=== PATIENT | female | born 1955 | race Caucasian/White ===

== ENCOUNTER 2019-01-13 02:29 | Emergency (ER) | payer SELFPAY ==
--- NOTE | 2019-01-13 03:11 | ER ---
Nurse's Notes [facility] Name: Anastasiya Salazar Age: 63 yrs Sex: Female : 1955 Arrival Date: 01/13/2019 Time: 02:31 Bed 16 Private MD: Diagnosis: Urinary tract infection, site not specified Presentation: 01/13 02:38 Presenting complaint: Patient states: "I think I might have a UTI. Ether that or it jd3 might have something to do with my bladder falling. my doctor has talked about maybe needing to do a mesh, but I don't know if that would cause this painful and urinary frequency.". Transition of care: patient was not received from another setting of care. Onset of symptoms was January 13, 2019. Risk Assessment: Do you want to hurt yourself or someone else? Patient reports no desire to harm self or others. Initial Sepsis Screen: Does the patient meet any 2 criteria? No. Patient's initial sepsis screen is negative. Does the patient have a suspected source of infection? No. Patient's initial sepsis screen is negative. Care prior to arrival: None. 02:38 Method Of Arrival: Ambulatory jd3 02:38 Acuity: BRIGITTE 4 jd3 Historical: - Allergies: 02:41 No Known Allergies; jd3 - Home Meds: 02:41 gabapentin oral oral [Active]; jd3 - PMHx: 02:41 None; jd3 - PSHx: 02:41 tubal preg; jd3 - Immunization history:: Adult Immunizations up to date. - Social history:: Smoking status: Patient/guardian denies using tobacco, the patient reports quitting approximately 10 years ago. - Ebola Screening: : Patient negative for fever greater than or equal to 101.5 degrees Fahrenheit, and additional compatible Ebola Virus Disease symptoms. Screenin:01 Abuse screen: Denies threats or abuse. Denies injuries from another. Nutritional rr5 screening: No deficits noted. Tuberculosis screening: No symptoms or risk factors identified. Fall Risk None identified. Total Crawford Fall Scale indicates No Risk (0-24 pts). Assessment: 02:40 General: Appears in no apparent distress. comfortable, Behavior is calm, cooperative, rr5 appropriate for age. Pain: Complains of pain in urethral area Pain does not radiate. Pain currently is 8 out of 10 on a pain scale. Quality of pain is described as aching, Pain began gradually, Is intermittent. Neuro: Level of Consciousness is awake, alert, obeys commands, Oriented to person, place, time, situation, Appropriate for age. 02:40 Cardiovascular: Capillary refill < 3 seconds Patient's skin is warm and dry. rr5 Respiratory: Airway is patent Respiratory effort is even, unlabored, Respiratory pattern is regular, symmetrical. GI: No signs and/or symptoms were reported involving the gastrointestinal system. : Urine is cloudy, with sediments noted Reports pain with urination. EENT: No signs and/or symptoms were reported regarding the EENT system. Derm: Skin is intact, Skin temperature is warm. Musculoskeletal: Capillary refill < 3 seconds, Range of motion: intact in all extremities. 02:40 : Reports urinary frequency. rr5 03:31 Reassessment: Patient appears in no apparent distress at this time. Patient is alert, rr5 oriented x 3, equal unlabored respirations, skin warm/dry/pink. discharge instruction given and explained without complaints made. Vital Signs: 02:42 BP 134 / 88; Pulse 75; Resp 17 S; Temp 98.1(O); Pulse Ox 100% on R/A; Weight 59.87 kg jd3 (R); Height 5 ft. 6 in. (167.64 cm) (R); Pain 8/10; 03:30 BP 130 / 79; Pulse 77; Resp 17; Pulse Ox 100% on R/A; rr5 02:42 Body Mass Index 21.31 (59.87 kg, 167.64 cm) jd3 ED Course: 02:31 Patient arrived in ED. am2 02:40 Triage completed. jd3 02:41 Manish Hayes, RN is Primary Nurse. rr5 02:42 Arm band placed on. jd3 02:55 Urine collected: clean catch specimen, sediment noted. rr5 03:02 Patient has correct armband on for positive identification. Bed in low position. Call rr5 light in reach. 03:04 Nathan Bradley PA is PHCP. cp 03:04 Nathan Fitzgerald MD is Attending Physician. cp 03:31 No provider procedures requiring assistance completed. Patient did not have IV access rr5 during this emergency room visit. Administered Medications: 03:11 CANCELLED (Physician Discretion): KeFLEX 500 mg PO once cp 03:15 Drug: Pyridium 200 mg Route: PO; rr5 03:32 Follow up: Response: Medication administered at discharge. rr5 03:15 Drug: Bactrim (160 mg-800 mg (DS) 1 tablet Route: PO; rr5 03:32 Follow up: Response: Medication administered at discharge. rr5 Outcome: 03:10 Discharge ordered by MD. cp 03:31 Discharged to home ambulatory, with family. rr5 03:31 Condition: stable 03:31 Discharge instructions given to patient, Instructed on discharge instructions, follow up and referral plans. medication usage, Demonstrated understanding of instructions, follow-up care, medications, Prescriptions given X 2. 03:32 Patient left the ED. rr5 Signatures: Nathan Bradley PA PA cp Moreno, Amanda am2 Davies, Jonathon, RN RN jd3 Manish Hayes RN RN rr5
--- NOTE | 2019-01-13 03:11 | EDPHYS ---
Physician Documentation [facility] Name: Anastasiya Salazar Age: 63 yrs Sex: Female : 1955 Arrival Date: 01/13/2019 Time: 02:31 Bed 16 Private MD: ED Physician Nathan Fitzgerald HPI: 01/13 03:08 This 63 yrs old Female presents to ER via Ambulatory with complaints of Pain cp With Urination, Urinary Frequency. 03:08 The patient presents with urinary symptoms, dysuria. Onset: The symptoms/episode cp began/occurred yesterday. Associated signs and symptoms: Pertinent positives: dysuria, Pertinent negatives: fever, vomiting. Severity of symptoms: in the emergency department the symptoms are unchanged, despite home interventions. Patient recent return from road trip to [place]. Denies low back or abdominal pain. Historical: - Allergies: 02:41 No Known Allergies; jd3 - Home Meds: 02:41 gabapentin oral oral [Active]; jd3 - PMHx: 02:41 None; jd3 - PSHx: 02:41 tubal preg; jd3 - Immunization history:: Adult Immunizations up to date. - Social history:: Smoking status: Patient/guardian denies using tobacco, the patient reports quitting approximately 10 years ago. - Ebola Screening: : Patient negative for fever greater than or equal to 101.5 degrees Fahrenheit, and additional compatible Ebola Virus Disease symptoms. ROS: 03:08 Constitutional: Negative for body aches, chills, fever, poor PO intake. cp 03:08 Cardiovascular: Negative for chest pain, palpitations. cp 03:08 Respiratory: Negative for cough, shortness of breath, wheezing. 03:08 Abdomen/GI: Negative for abdominal pain, nausea, vomiting, and diarrhea. 03:08 Back: Negative for pain at rest, pain with movement. 03:08 : Positive for urinary symptoms. 03:08 Neuro: Negative for headache. 03:08 All other systems are negative. Exam: 03:08 Head/Face: Normocephalic, atraumatic. cp 03:08 Constitutional: The patient appears in no acute distress, alert, awake, non-toxic, well developed, well nourished, uncomfortable. 03:08 Eyes: Periorbital structures: appear normal, Conjunctiva: normal, Lids and lashes: appear normal, bilaterally. 03:08 ENT: External ear(s): are unremarkable, Nose: is normal, Mouth: Lips: moist, Oral mucosa: moist. 03:08 Chest/axilla: Inspection: normal. 03:08 Cardiovascular: Rate: normal, Rhythm: regular. 03:08 Respiratory: the patient does not display signs of respiratory distress, Respirations: normal, no use of accessory muscles, no retractions. 03:08 Abdomen/GI: Exam negative for discomfort, distension, guarding, Inspection: abdomen appears normal. 03:08 Back: CVA tenderness, is absent. Vital Signs: 02:42 BP 134 / 88; Pulse 75; Resp 17 S; Temp 98.1(O); Pulse Ox 100% on R/A; Weight 59.87 kg jd3 (R); Height 5 ft. 6 in. (167.64 cm) (R); Pain 8/10; 03:30 BP 130 / 79; Pulse 77; Resp 17; Pulse Ox 100% on R/A; rr5 02:42 Body Mass Index 21.31 (59.87 kg, 167.64 cm) jd3 MDM: 03:08 Patient medically screened. cp 03:10 Data reviewed: vital signs, nurses notes, lab test result(s). cp 03:10 Differential diagnosis: urinary tract infection, vaginosis, kidney stone. Counseling: I cp had a detailed discussion with the patient and/or guardian regarding: the historical points, exam findings, and any diagnostic results supporting the discharge/admit diagnosis, lab results, to return to the emergency department if symptoms worsen or persist or if there are any questions or concerns that arise at home. 01/13 02:43 Order name: Urine Microscopic Only jd3 01/13 03:11 Order name: Urine Culture cp 01/13 02:43 Order name: Urine Dipstick-Ancillary (obtain specimen); Complete Time: 02:55 jd3 Administered Medications: 03:11 CANCELLED (Physician Discretion): KeFLEX 500 mg PO once cp 03:15 Drug: Pyridium 200 mg Route: PO; rr5 03:32 Follow up: Response: Medication administered at discharge. rr5 03:15 Drug: Bactrim (160 mg-800 mg (DS) 1 tablet Route: PO; rr5 03:32 Follow up: Response: Medication administered at discharge. rr5 Disposition: 03:35 Chart complete. cp Disposition: 01/13/19 03:10 Discharged to Home. Impression: Urinary tract infection, site not specified. - Condition is Stable. - Discharge Instructions: Urinary Tract Infection, Adult. - Prescriptions for Pyridium 200 mg Oral Tablet - take 1 tablet by ORAL route every 8 hours for 3 days; 6 tablet. Bactrim DS 800- 160 mg Oral Tablet - take 1 tablet by ORAL route every 12 hours for 7 days; 14 tablet. - Medication Reconciliation Form, Thank You Letter, Antibiotic Education, Prescription Opioid Use form. - Follow up: Private Physician; When: 2 - 3 days; Reason: Worsening of condition. - Problem is new. - Symptoms have improved. Addendum: 01/16/2019 11:11 Co-signature as Attending Physician, Nathan Fitzgerald MD I agree with the assessment and c charles plan of care. Signatures: Dispatcher [employer] EDNathan Childs MD MD cha Page, Corey PA PA Aubrey Dixon RN RN jManish Christine RN RN rr5 Corrections: (The following items were deleted from the chart) 01/13 03:11 03:09 KeFLEX 500 mg PO once ordered. cp cp 03:32 03:10 01/13/2019 03:10 Discharged to Home. Impression: Urinary tract infection, site rr5 not specified. Condition is Stable. Forms are Medication Reconciliation Form, Thank You Letter, Antibiotic Education, Prescription Opioid Use. Follow up: Private Physician; When: 2 - 3 days; Reason: Worsening of condition. Problem is new. Symptoms have improved. cp
[2019-01-13] MEDS ORDERED: SMZ./TMP. 800/160 MG TABLET ONE (03:28)
[2019-01-13] MEDS ORDERED: PHENAZOPYRIDINE 100MG TAB PO ONE (03:28)
[2019-01-13 06:03] LABS: Urine Bacteria <20 /HPF (<20); Urine Culture Reflex Order NOT NEEDED; Urine RBC <5 /HPF (NONE SEEN)
== END 2019-01-13 03:32 | disposition home or self-care (01) ==
LOC: ER 02:29
DX: N39.0 Urinary tract infection, site not specified (principal); Z87.891 Personal history of nicotine dependence
CPT/HCPCS: 81015; 87086; 87088; 99283